=== PATIENT | male | born 1990 | race Caucasian/White ===

== ENCOUNTER 2023-03-25 16:05 | Emergency (ER) | payer OTHER, SELFPAY ==
--- NOTE | 2023-03-25 16:09 | ED.SKABFB ---
HPI - Skin/Abscess/Foreign Bdy General Chief complaint: Skin/Abscess/Foreign Body Stated complaint: rash on face Time Seen by Provider: 03/25/23 17:03 Source: patient and RN notes reviewed Mode of arrival: ambulatory Limitations: no limitations History of Present Illness HPI narrative: 32-year-old male presents with concern for rash on his face. Reports rash is itchy and burning. He denies pain. He reports he noticed the rash this morning. He denies any other rash. He denies fullness, swollen tongue, trouble breathing. He denies any new skin care products, home products. Reports he recently took an antibiotic but finished it 1 week ago. He denies any intervention MD complaint: rash Related Data Home Medications Medication Instructions Recorded Confirmed propranolol 60 mg capsule,24 60 mg PO DAILY 03/25/23 03/25/23 hr,extended release Allergies Allergy/AdvReac Type Severity Reaction Status Date / Time No Known Allergies Allergy Mild Verified 03/25/23 16:47 Review of Systems Review of Systems: CONSTITUTIONAL: Denies malaise, chills, sweats, or fever. EYES: Denies redness, or discharge. ENT: Denies rhinorrhea, congestion, swollen lips, swollen tongue CARDIOVASCULAR: Denies chest pain, palpitations, or edema. RESPIRATORY: Denies cough or dyspnea. GASTROINTESTINAL: Denies abdominal pain, nausea, vomiting SKIN: Reports itchy rash on the face MUSCULOSKELETAL: Denies joint pain or myalgia. NEUROLOGIC: Denies headache. All systems reviewed & are unremarkable except as noted in HPI and below PMFSH Family History Family History (System 08/13/20 @ 11:40 by Mega Zaldivar) Mother Family history of migraine headaches Patient's mother is in good health Family history of diabetes mellitus in first degree relative Father Hypertension Patient's father is in good health Family history of hearing loss Sibling Patient's sister is in good health Social History Social History (System 08/13/20 @ 11:40 by Mega Zaldivar) Alcohol intake: current Comments At time of signature, agree with nursing past medical, surgical, social and family history. There is no relevant family history pertinent to the presenting complaint Exam Narrative: GENERAL: Well-appearing, well-nourished, and in no acute distress. HEAD: Normocephalic, atraumatic. EYES: PERRLA, conjunctivae clear, and EOMI. ENT: Mucous membranes moist. Oropharynx without edema, erythema or lesions. NECK: Supple. No lymphadenopathy CHEST: Clear to auscultation. No respiratory distress. HEART: Regular rate and rhythm. SKIN: Warm, dry. Erythematous papular rash noted to the face, not involving the eyes. No induration, tenderness. No other rash noted NEURO: Alert and oriented x3. PSYCH: Normal mood and affect Course Course Emergency Course: Patient is aware of diagnosis, understands and agrees to treatment plan. Anticipatory guidance given. Patient agrees to follow-up as directed and is aware of reasons to seek care at the emergency department. Portions of this record may have been created with voice recognition software Level of Care: Express Care Visit Vital Signs Vital signs: Vital Signs Temperature 97.7 F 03/25/23 16:17 Pulse Rate 95 03/25/23 16:17 Respiratory Rate 18 03/25/23 16:17 Blood Pressure 139/96 H 03/25/23 16:17 Pulse Oximetry 98 03/25/23 16:17 Oxygen Delivery Room Air 03/25/23 16:17 Temperature 97.7 F 03/25/23 16:17 Pulse Rate 95 03/25/23 16:17 Respiratory Rate 18 03/25/23 16:17 Blood Pressure 139/96 H 03/25/23 16:17 Pulse Oximetry 98 03/25/23 16:17 Oxygen Delivery Room Air 03/25/23 16:17 Reviewed. MDM - Skin/Abscess/Foreign Bdy MDM Narrative Medical decision making narrative: Does not appear at this time to be erythema multiforme, bullous, SJS, TEN; no evidence at this time to suggest RMSF, endocarditis or Lyme disease; patient looks well, nontoxic and is tolerating oral intak
[2023-03-25 16:17] VITALS: BP 139/96; PULSE 95; RESP 18; TEMP 36.5; O2SAT 98
== END 2023-03-25 17:12 | disposition home or self-care (01) ==
PROVIDERS: Emergency Provider Nurse Practitioner
DX: L25.9 Unspecified contact dermatitis, unspecified cause (principal); I10 Essential (primary) hypertension
CPT/HCPCS: 99213; G0463

== ENCOUNTER 2024-08-08 11:09 | Outpatient (CLI) | payer OTHER, SELFPAY ==
[2024-08-09 10:41] LABS: Kit Draw Collected
== END 2024-08-08 11:10 | disposition home or self-care (01) ==
LOC: ANHGOSHLAB 11:11
PROVIDERS: Visit Provider Family Medicine
DX: Z76.89 Persons encountering health services in other specified circumstances (principal)
CPT/HCPCS: 36415

== ENCOUNTER 2025-03-26 09:58 | Outpatient (CLI) | payer OTHER, SELFPAY ==
--- OUTSIDE RECORDS SUMMARY | 2025-03-26 10:33 | XMS_ITS | Encounter Summary ---
Author Organization [facility] Address [address] [place] [address] Care Team Providers Care Shape Brick Molder Name Role Phone Miguel Vazquez MD Primary Care Provider U Keiry Lancaster NP Primary Care Provider [phone] Jaky Linda MD Primary Care Provider Encounter Details Date Type Department Care Team (Late st Contact Info) Description 02/01/2023 Federated Sample Message Enc [facility] Family & Internal Medicine [address] [address] [employer], [facility] Provider blood pressure Social History Tobacco Use Types Packs/Day Years Used Date Smoking Tobacco: Former Cigarettes Smokeless Tobacco: Never Alcohol Use Standard Drinks/Week Comments Yes 0 (1 standard drink = 0.6 oz pur e alcohol) AUDIT-C Answer Date Recorded Frequency of Alcohol Consumption 2-4 times a wed02/07/2019 Average Number of Drinks 3 or 4 019 Frequency of Binge Drinking Not on file 12/2018 PHQ-2 Answer Date Recorded Patient Health Questionnaire-2 Score 1 01/29/2023 Education Answer Date Recorded What is the highest level of school you have completed or the highest degree you have received? Associate degree: academic program 02/07/2019 Sex and Gender Information Value Date Recorded Sex Assigned at Not on file Legal Sex Male 7:50 PM CDT Gender Identity Not on file Sexual Orientation Not on file COVID-19 Exposure Response Date Recorded In the last 10 days, have yo u been in contact with someone who was confirmed or suspected to have Coronavirus/COVID-19? No / Unsure 01/29/2023 11:29 AM CDT documented as of this encounter Plan of Treatment Not on file documented as of this encounter Visit Diagnoses Not on filedocumented in this encounter Additional Health Concerns Assessment Noted Time PHQ-9 Depression Total Score: 10 022 4:19 PM CDT documented as of this encounter Care Teams Shape Brick Molder Relationship Specialty Start Date End Date Miguel Vazquez MD PCP - General INTERNAL MEDICINE 10/03/18 02/11/23 [place] [address] [facility] [address] [address] PCP - General Nurse Practitioner Family 02/12/2310/31 Jaky Linda MD [address] [facility] [address] [place] [address] PCP - General FAMILY PRACTICE 09/20/24 documented as of this encounter
--- OUTSIDE RECORDS SUMMARY | 2025-03-26 10:34 | XMS_ITS | Clinical Summary ---
Author Organization [facility] Address [facility] [place] [address] Care Team Providers Care Corrections Officer Name Role Phone Jaky Linda MD Primary Care Provider Allergies No known active allergies Medications ibuprofen (MOTRIN) 200 MG tablet Take 2 tablets (400 mg total) by mouth. Active propranolol LA (INDERAL LA) 60 MG 24 hr capsuleIndicati ons:Episodic migraine Take 1 capsule (60 mg total) by mouth nightly. 90 capsule 05/03/2024 Active Active Problems Problem Noted Date Diagnosed Date Chiari malformation type I ([facility]) 12/2022 Hyperlipidemia 12/07/2016 Obesity 08/12/2013 Hypertension 08/11/2013 Immunizations Immunization Administration Dates Next Due Afluria 36 MONTHS+ (Prefille d Syringe IIV4) 08/27/2019 Flucelvax 6 Months+ (Prefill ed Syringe) 07/25/2020 Influenza (Generic) 08/16/2017,08/07/2016,2014 Influenza Adult (Generic) 08/07/2021,,08/27/2019,2017,08/16/2017,08/06/2017,08/07/2016,1 Family History Medical History Relation Comments COPD Father Heart Disease Father Hypertension Father None Mother Hypertension Sister Relation Status Comments Father Mother Sister Social History Tobacco Use Types Packs/Day Years Used Date Smoking Tobacco: Former Cigarettes Smokeless Tobacco: Never Tobacco Cessation:Counseling Given: Yes Alcohol Use Standard Drinks/Week Comments Yes 0 [...] on file Sexual Orientation Not on file Last Filed Vital Signs Vital Sign Reading Time Taken Comments Blood Pressure 132/87 01/14/2024 9:16 AM HARDNESS INSPECTOR Pulse 75 01/14/2024 9:16 AM HARDNESS INSPECTOR Temperature 36.7 C (98.1 F) 09/26/2023 11:22 AM HARDNESS INSPECTOR Respiratory Rate 20 09/26/2023 12:00 PM HARDNESS INSPECTOR Oxygen Saturation 100% 01/14/2024 9:16 AM HARDNESS INSPECTOR Inhaled Oxygen Concentration - - Weight 144.7 kg (319 lb) 01/14/2024 9:16 AM HARDNESS INSPECTOR Height 185.4 cm (6' 1 ) 01/14/2024 9:16 AM HARDNESS INSPECTOR Body Mass Index 42.09 01/14/2024 9:16 AM HARDNESS INSPECTOR Plan of Treatment Health Maintenance Due Date Last Done Comments Annual Physical 1991 Hepatitis C 2006 DTaP, Tdap and Td Vaccines ( 1 - Tdap) 2007 Hepatitis B Vaccines (1 of 3 - 19+ 3-dose series) 2007 COVID-19 Vaccine (2023-2 5 season) 2024 01/24/2021, 01/03/2021 PHQ-2 (Physician Campo) 11/08/2024 HPV Vaccines Aged Out No longer eligi ble based on patient's age to complete this topic Meningococcal B Vaccine Aged Out No l onger eligible based on patient's age to complete this topic Meningococcal Vaccine Aged Out No aida francis eligible based on patient's age to complete this topic Pneumococcal Vaccine: Pediatrics (0 to 5 Years) and At-Risk Patients (6 to 49 Years) Aged Out No longer eligible b ased on patient's age to complete this topic RSV Immunizations Under 20 Months Aged Out No longer eligible b ased on patient's age to complete this topic Insurance Care Teams Corrections Officer Relationship Specialty Start Date End Date Jaky Linda MD [address] [facility] [address] [place] [address] PCP - General FAMILY PRACTICE 09/20/24
--- OUTSIDE RECORDS SUMMARY | 2025-03-26 10:34 | XMS_ITS | Clinical Summary ---
Author Organization [facility] Address [address] [place] [address] Care Team Providers Care Carton Forming Machine Operator Name Role Phone Unavailable Primary Care Provider Unavailabl e Source Comments [facility],non-owned Affiliates and Associated Physician Practices is amultiple site organization consisting of ambulatory clinics and hospital sitesin [place], [place], [place] and [place]. This disclosure is being madepursuant to the Care Everywhere program and may not contain all information available regarding this patient. Last updated 18.[facility] Social History Tobacco Use Types Packs/Day Years Used Date Smoking Tobacco: Never Assessed Sex and Gender Information Value Date Recorded Sex Assigned at Not on file Legal Sex Male 6:33 AM AUTO DAMAGE ESTIMATOR Gender Identity Not on file Sexual Orientation Not on file Plan of Treatment Health Maintenance Due Date Last Done Comments HIV SCREENING 2003 HEPATITIS C SCREENING 04/09/2006 DTAP/TDAP/TD VACCINES (1 - Tdap) 2007 HEPATITIS B VACCINE (1 of 3 - 19+ 3-dose series) 2007 COVID-19 VACCINE ( - 2023-2 5 season) 2024 DEPRESSION SCREENING 11/08/2024 INFLUENZA VACCINE (Season Ended) 2025 ZOSTER VACCINE (1 of 2) 2038 HIB VACCINE Aged Out No longer eligi ble based on patient's age to complete this topic HPV VACCINE Aged Out No longer eligi ble based on patient's age to complete this topic MENINGOCOCCAL (Group B) VACC INE SHARED DECISION-MAKING Aged Out No longer eligibl e based on patient's age to complete this topic MENINGOCOCCAL GROUPS A/C/Y/W VACCINE Aged Out No longer eligible b ased on patient's age to complete this topic PNEUMOCOCCAL VACCINE Aged Out No long er eligible based on patient's age to complete this topic
--- OUTSIDE RECORDS SUMMARY | 2025-03-26 10:34 | XMS_ITS | Clinical Summary ---
Author Organization [facility] Address [address] [place] [address] Care Team Providers Care Patient Attendant Name Role Phone No, Physician Primary Care Provider [phone] Allergies No known active allergies Medications propranolol LA (INDERAL LA) 60 mg 24 hr capsuleIndicati ons:hypertensio n Take 1 capsule (60 mg total) by mouth nightly 2 Active acetaminophen (TYLENOL) 500 mg tabletIndicatio ns:Pain Take 2 tablets (1,000 mg total) by mouth every 6 (six) hours as needed for pain Active ibuprofen 200 mg tab/capIndicati ons:Pain Take 2 tablet/capsule (400 mg total) by mouth every 6 (six) hours as needed for pain Active HYDROcodone-reyna taminophen (NORCO) 5-325 mg per tabletIndicatio ns:Pain Take 1 tablet by mouth every 6 (six) hours as needed for pain (Pain not relieved by tylenol/ibupro fen. Contains tylenol.) 13 tablet 3 Active mupirocin (BACTROBAN) 2 % ointment Apply topically 2 (two) times a day 22 g 3 Active Active Problems Problem Noted Date Diagnosed Date Conductive hearing loss 10/19/2022 Cholesteatoma 10/19/2022 Surgical History Surgery Date Site/Laterality Comments TONSILLECTOMY/ADENOIDECTOMY 11/08/2009 - 11/07/2010 Bila teral CHOLESTEATOMA EXCISION 11/08/2008 - 11/07/2009 EAR SURGERY 11/08/2008 - 11/07/2009 Left I&D Medical History Medical History Date Comments Migraine HL (hearing loss) HBP (high blood pressure) Family History Medical History Relation Name Comments Heart disease Father Relation Name Status Comments Father Social History Tobacco Use Types Packs/Day Years Used Date Smoking Tobacco: Former Cigarettes Q uit: 2019 Smokeless Tobacco: Never Tobacco Cessation:Counseling Given: Not Answered AUDIT-C Answer Date Recorded Q1: How often do you have a drink containing alc ohol? 2-4 times a month 03/16/2023 Q2: How many drinks containi ng alcohol do you have on a typical day when you are drinking? 1 or 2 03/16/2023 Q3: How often do you have si x or more drinks on one occasion? Never 03/16/2023 Personal Safety Answer Date Recorded Have you ever been in or are you currently in a harmful physical or emotional relationship or is someone making you feel afraid or unsafe? Denies 03/16/2023 Sex and Gender Information Value Date Recorded Sex Assigned at Not on file Legal Sex Male 8:28 PM BUCKET PUSHER Gender Identity Not on file Sexual Orientation Not on file Obstetrics History Last Filed Vital Signs Vital Sign Reading Time Taken Comments Blood Pressure 156/86 03/16/2023 3:15 PM CDT Pulse 66 03/16/2023 3:15 PM CDT Temperature 35.8 C (96.4 F) 03/16/2023 2:15 PM CDT Respiratory Rate 25 03/16/2023 3:15 PM CDT Oxygen Saturation 98% 03/16/2023 3:15 PM CDT Inhaled Oxygen Concentration - - Weight 137 kg (302 lb) 02/17/2023 5:15 PM CDT Height 188 cm (6' 2 ) 02/17/2023 5:15 PM CDT Body Mass Index 38.77 02/17/2023 5:15 PM CDT Plan of Treatment Health Maintenance Due Date Last Done Comments Depression Screening 1988 Hepatitis C Screening 1988 DTaP/Tdap/Td Vaccine (1 - Tdap) 1999 Varicella Vaccines (1 of 2 - 13+ 2-dose series) 2001 Hepatitis B Screening 2006 Regular Well Visit/Exam 18-64 2006 Covid-19 Vaccine ( season) 2024 01/24/2021, 01/03/2021 Influenza Vaccine (#1) 2024 2, 08/07/2021, 07/25/2020, Additional history exists HPV Vaccines Aged Out No longer eligi ble based on patient's age to complete this topic Pneumococcal vaccine <65 Aged Out No longer eligible based on patient's age to complete this topic Medical Devices Implanted Type Area Religious Education Director Device Identifier Shelf Expiration Date Model / Serial / Lot Cochlear Americas Dermalock Baha 4mm 12mm 1 Stage Abutment Implant Cochlear [id number] - [id number] Implanted:Qty: 1 on 03/16/2023 by Rosalia Nielson MD at [facility] Left: Ear Cochle[employer] [id number] 07/21/2027 [id number] / / [id number] Insurance [facility] [place] [address] [facility] CHO[facility] PL[facility] Care Teams Patient Attendant Relationship Specialty Start Date End Date No, Physician PCP - General 05/28/22
--- OUTSIDE RECORDS SUMMARY | 2025-03-26 10:34 | XMS_ITS | Referral Summary ---
Author Organization [facility] Address [address] [place] [address] Care Team Providers Care Sous Chef Kitchen Manager Name Role Phone No, Physician Primary Care Provider [phone] Allergies No known active allergies Medications propranolol [...] Date Conductive hearing loss 10/19/2022 Cholesteatoma 10/19/2022 Social History Tobacco Use Types Packs/Day Years [...] on file Legal Sex Male 8:28 PM DAY HABILITATION SPECIALIST Gender Identity Not on file Sexual Orientation [...] 02/17/2023 5:15 PM CDT Plan of Treatment Not on file Medical Devices Implanted Type Area Motor Hotel Manager Device Identifier Shelf Expiration Date Model / Serial / Lot Cochlear [employer] Dermalock Baha 4mm 12mm 1 Stage Abutment Implant Cochlear [id number] - [id number] Implanted:Qty: 1 on 03/16/2023 by Rosalia Nielson MD at [facility] Left: Ear [employer]chlear [employer] [id number] 07/21/2027 [id number] / / [id number] Insurance [facility] CHOICE PLUS [facility] CHOICE PLUS Care Teams Sous Chef Kitchen Manager Relationship Specialty Start Date End Date No, Physician PCP - General 05/28/22
[2025-03-26 20:59] LABS: Alanine Aminotransferase 56 U/L (6-50); Albumin Level 4.7 g/dL (3.5-5.1); Alkaline Phosphatase 62 U/L (38-126); Anion Gap 13 mmol/L (4-12); Aspartate Amino Transferase 127 U/L (17-59); Bilirubin,Total 0.5 mg/dL (0.2-1.3); Blood Urea Nitrogen 21 mg/dL (9-20); Calcium 9.6 mg/dL (8.4-10.2); Carbon Dioxide 25 mmol/L (22-30); Chloride 102 mmol/L (98-107); Cholesterol 145 mg/dL (0-200); Estimated Glomerular Filt Rate > 60; Glucose 87 mg/dL (65-110); HDL Direct 32 mg/dL; Sodium 140 mmol/L (137-145); Triglycerides 89 mg/dL (<150)
[2025-03-26 21:09] LABS: LDL Cholesterol Direct 85 mg/dL
== END 2025-03-26 09:59 | disposition home or self-care (01) ==
LOC: ANHGOSHLAB 09:58
PROVIDERS: PCP Family Medicine; Visit Provider Family Medicine
DX: E78.5 Hyperlipidemia, unspecified (principal); I10 Essential (primary) hypertension; Z79.899 Other long term (current) drug therapy
CPT/HCPCS: 36415; 80053; 80061

== ENCOUNTER 2025-05-23 07:56 | Outpatient (CLI) | payer OTHER, SELFPAY ==
--- OUTSIDE RECORDS SUMMARY | 2025-05-23 07:59 | XMS_ITS | Clinical Summary ---
Author Organization [facility] Address [facility] [place] [address] Care Team Providers Care Service Station Manager Name Role Phone Jaky Linda MD Primary [...] Date Diagnosed Date Chiari malformation type I ([facility]) 12/2022 Hyperlipidemia 12/07/2016 Obesity 08/12/2013 Hypertension 08/11/2013 [...] Comments Blood Pressure 132/87 01/14/2024 9:16 AM GLOBAL LOGISTICS MANAGER Pulse 75 01/14/2024 9:16 AM GLOBAL LOGISTICS MANAGER Temperature 36.7 C (98.1 F) 09/26/2023 11:22 AM GLOBAL LOGISTICS MANAGER Respiratory Rate 20 09/26/2023 12:00 PM GLOBAL LOGISTICS MANAGER Oxygen Saturation 100% 01/14/2024 9:16 AM GLOBAL LOGISTICS MANAGER Inhaled Oxygen Concentration - - Weight 144.7 kg (319 lb) 01/14/2024 9:16 AM GLOBAL LOGISTICS MANAGER Height 185.4 cm (6' 1) 01/14/2024 9:16 AM GLOBAL LOGISTICS MANAGER Body Mass Index 42.09 01/14/2024 9:16 AM GLOBAL LOGISTICS MANAGER Plan of Treatment Health Maintenance Due Date Last Done Comments Annual Physical 1991 Hepatitis C 2006 DTaP, Tdap and Td Vaccines ( 1 - Tdap) 2007 Hepatitis B Vaccines (1 of 3 - 19+ 3-dose series) 2007 COVID-19 Vaccine (2023-2 5 season) 2024 01/24/2021, 01/03/2021 PHQ-2 (Physician Hoopa) 11/08/2024 HPV Vaccines Aged Out No longer [...] to complete this topic Insurance Care Teams Service Station Manager Relationship Specialty Start Date End Date Jaky Linda MD [address] [facility] [address] [place] [address] PCP - General FAMILY PRACTICE 09/20/24
--- OUTSIDE RECORDS SUMMARY | 2025-05-23 07:59 | XMS_ITS | Patient Health Record ---
Author Organization [facility] [employer]. Address [address] [place] [address] Care Team Providers Care Travel Agency Manager Name Role Phone Sidney Milian Primary Care Provider Reason For Referral No Information Immunizations Vaccine Route Administration Date Status Comme nts zzInfluenza, quadrivalent, injectable, preservative free (All) IM Intramuscular 08/06/2017 Administered Plan Of Treatment No Information Insurance Providers Payer Name Payer Address Payer Phone Subscriber Number Group Number Insured Name Patient Relationship to Insured Coverage Start Date Coverage End Date A[employer] [address] [place] [address] [id number] Yaya Gonzalez Self - patient is the insured
--- OUTSIDE RECORDS SUMMARY | 2025-05-23 07:59 | XMS_ITS | Clinical Summary ---
Author Organization [facility] Address [address] [place] [address] Care Team Providers Care Speech Coach Name Role Phone No, Physician Primary Care Provider [phone] Allergies No known active allergies Medications propranolol [...] on file Legal Sex Male 8:28 PM VB DEVELOPER Gender Identity Not on file Sexual Orientation [...] 5:15 PM CDT Height 188 cm (6' 2) 02/17/2023 5:15 PM CDT Body Mass Index 38.77 02/17/2023 5:15 PM CDT Plan of Treatment Health Maintenance Due Date Last Done Comments Depression Screening 1988 Hepatitis C Screening 1988 DTaP/Tdap/Td Vaccine (1 - Tdap) 1999 Varicella Vaccines (1 of 2 - 13+ 2-dose series) 2001 Hepatitis B Screening 2006 Regular Well Visit/Exam 18-64 2006 Covid-19 Vaccine ( season) 2024 01/24/2021, 01/03/2021 Influenza Vaccine (Season Ended) 2025 07/23/2022, 08/07/2021, 07/25/2020, Additional history exists HPV Vaccines Aged Out No longer eligi ble based on patient's age to complete this topic Pneumococcal vaccine <65 Aged Out No longer eligible based on patient's age to complete this topic Medical Devices Implanted Type Area Athletic Events Scorer Device Identifier Shelf Expiration Date Model / Serial / Lot Cochlear [employer] Dermalock Baha 4mm 12mm 1 Stage Abutment Implant Cochlear [id number] - [id number] Implanted:Qty: 1 on 03/16/2023 by Rosalia Nielson MD at [facility] Left: Ear Cochlear [employer] [id number] 07/21/2027 [id number] / / [id number] Insurance [facility] CHO[facility] PLUS [facility] HMO/PPO Address: [facility] [address] [place] [address] [facility] CHOICE PLUS [facility] HMO/PPO Address: [place] [address] Care Teams Speech Coach Relationship Specialty Start Date End Date No, Physician PCP - General 05/28/22
--- OUTSIDE RECORDS SUMMARY | 2025-05-23 07:59 | XMS_ITS | Referral Summary ---
Author Organization [facility] Address [address] [place] [address] Care Team Providers Care Battery Vent Plug Inserter Name Role Phone No, Physician Primary Care Provider [phone] Allergies No known active allergies Medications propranolol [...] on file Legal Sex Male 8:28 PM EXTENSION FORESTER Gender Identity Not on file Sexual Orientation [...] on file Medical Devices Implanted Type Area Shingle Sawyer Device Identifier Shelf Expiration Date Model / Serial / Lot Cochlear [employer] Dermalock Baha 4mm 12mm 1 Stage Abutment Implant Cochlear [id number] - [id number] Implanted:Qty: 1 on 03/16/2023 by Rosalia Nielson MD at [facility] Left: Ear [employer]chlear [employer] [id number] 07/21/2027 [id number] / / [id number] Insurance [facility] CHO[facility] PLUS [facility] CHO[facility] PL[facility] Care Teams Battery Vent Plug Inserter Relationship Specialty Start Date End Date No, Physician PCP - General 05/28/22
--- OUTSIDE RECORDS SUMMARY | 2025-05-23 07:59 | XMS_ITS | Encounter Summary ---
Author Organization [facility] Address [address] [place] [address] Care Team Providers Care Rougher Merchant Mill Name Role Phone Miguel Vazquez MD Primary Care Provider U Keiry Lancaster NP Primary Care Provider [phone] Jaky Linda MD Primary Care Provider Encounter Details Date Type Department Care Team (Late st Contact Info) Description 02/01/2023 Y'all Message Enc [facility] Family & Internal Medicine [address] [address] [place], [facility] Provider blood pressure Social History Tobacco Use [...] documented as of this encounter Care Teams Rougher Merchant Mill Relationship Specialty Start Date End Date Miguel Vazquez MD PCP - General INTERNAL MEDICINE 10/03/18 02/11/23 [place] [address] [facility] [address], [place] [address] PCP - General Nurse Practitioner Family 02/12/2310/31 Jaky Linda MD [address] [facility] [address] [place] [address] PCP - General FAMILY PRACTICE 09/20/24 documented as of this encounter
--- OUTSIDE RECORDS SUMMARY | 2025-05-23 07:59 | XMS_ITS | Clinical Summary ---
Author Organization [facility] Address [address] [place] [address] Care Team Providers Care Customer Service And Sales Consultant Name Role Phone Unavailable Primary Care Provider Unavailabl e Source Comments [facility],non-owned Affiliates and Associated Physician Practices is amultiple site organization consisting of ambulatory clinics and hospital sitesin [place], [place], [place] and [place]. This disclosure is being madepursuant to the Care Everywhere program and may not contain all information available regarding this patient. Last updated 18.[facility] [place] Social History Tobacco Use Types Packs/Day Years Used Date Smoking Tobacco: Never Assessed Sex and Gender Information Value Date Recorded Sex Assigned at Not on file Legal Sex Male 6:33 AM BEATER ROOM HELPER Gender Identity Not on file Sexual Orientation Not on file Plan of Treatment Health Maintenance Due Date Last Done Comments HIV SCREENING 2003 HEPATITIS C SCREENING 04/09/2006 DTAP/TDAP/TD VACCINES (1 - Tdap) 2007 HEPATITIS B VACCINE (1 of 3 - 19+ 3-dose series) 2007 HPV VACCINE (1 - 3-dose SCDM series) 2015 COVID-19 VACCINE ( - 2023-2 5 season) 2024 DEPRESSION SCREENING 11/08/2024 INFLUENZA VACCINE (#1) 2025 ZOSTER VACCINE (1 of 2) 2038 [...]
[2025-05-23 18:52] LABS: Alanine Aminotransferase 34 U/L (6-50); Albumin Level 4.4 g/dL (3.5-5.1); Alkaline Phosphatase 63 U/L (38-126); Anion Gap 7 mmol/L (4-12); Aspartate Amino Transferase 61 U/L (17-59); Bilirubin,Total 0.4 mg/dL (0.2-1.3); Blood Urea Nitrogen 17 mg/dL (9-20); Calcium 9.7 mg/dL (8.4-10.2); Carbon Dioxide 29 mmol/L (22-30); Chloride 102 mmol/L (98-107); Estimated Glomerular Filt Rate > 60; Glucose 88 mg/dL (65-110); Potassium 4.4 mmol/L (3.4-5.0); Sodium 138 mmol/L (137-145); Total Protein 7.6 g/dL (6.3-8.2)
[2025-05-23 19:07] LABS: Hepatitis B Surface Antigen Negative (Negative)
[2025-05-23 19:13] LABS: HAV RESULT Negative (Negative); Hepatitis B Core IgM Result Negative (Negative)
== END 2025-05-23 07:57 | disposition home or self-care (01) ==
LOC: ANHGOSHLAB 07:57
PROVIDERS: PCP Family Medicine; Visit Provider Family Medicine
DX: R74.01 Elevation of levels of liver transaminase levels (principal); I10 Essential (primary) hypertension; R74.8 Abnormal levels of other serum enzymes
CPT/HCPCS: 36415; 80053; 80074

== ENCOUNTER 2025-06-04 10:38 | Outpatient (CLI) | payer OTHER, SELFPAY ==
--- OUTSIDE RECORDS SUMMARY | 2025-06-04 11:04 | XMS_ITS | Clinical Summary ---
Author Organization [facility] Address [address] [place] [address] Care Team Providers Care Manifold Builder Name Role Phone Unavailable Primary Care Provider Unavailabl e Source Comments [facility],non-owned Affiliates and Associated Physician Practices is amultiple site organization consisting of ambulatory clinics and hospital sitesin [place], [place], [place] and [place]. This disclosure is being madepursuant to the Care Everywhere program and may not contain all information available regarding this patient. 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
--- OUTSIDE RECORDS SUMMARY | 2025-06-04 11:04 | XMS_ITS | Patient Health Record ---
Author Organization [facility] Address [address] [place] [address] Care Team Providers Care Cad Draftsman Name Role Phone Sidney Milian Primary Care Provider Reason For Referral No Information Immunizations Vaccine Route Administration Date Status Comme nts zzInfluenza, quadrivalent, injectable, preservative free (All) IM Intramuscular 08/06/2017 Administered Plan Of Treatment No Information Insurance Providers Payer Name Payer Address Payer Phone Subscriber Number Group Number Insured Name Patient Relationship to Insured Coverage Start Date Coverage End Date Aetna [address] [place] [address] [id number] Yaya Gonzalez Self - patient is the insured
--- OUTSIDE RECORDS SUMMARY | 2025-06-04 11:04 | XMS_ITS | Clinical Summary ---
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 Gender Identity Not on file Sexual Orientation [...] Screening 2006 Regular Well Visit/Exam 18-64 2006 HPV Vaccines (1 - 3-dose SCDM series) 2015 Covid-19 Vaccine ( season) 2024 01/24/2021, 01/03/2021 Influenza Vaccine (#1) 2025 , 08/07/2021, 07/25/2020, Additional history exists Pneumococcal vaccine <65 Aged Out No longer eligible based on patient's age to complete this topic Medical Devices Implanted Type Area Wire Roller Device Identifier Shelf Expiration Date Model / Serial / Lot Cochlear [employer] Dermalock Baha 4mm 12mm 1 Stage Abutment Implant Cochlear [id number] - [id number] Implanted:Qty: 1 on 03/16/2023 by Rosalia Nielson MD at [facility] [place] Left: Ear [employer]chle[employer] [id number] 07/21/2027 [id number] / / [id number] Insurance [facility] PLUS [facility] H[facility]/PPO Address: [facility] [address] [place] [address] [facility] CHOICE PLUS [facility] HMO/PPO Address: [place] [address] Care Teams Mental Health Nurse Practitioner Relationship Specialty Start Date End Date No, Physician PCP - General 05/28/22
--- OUTSIDE RECORDS SUMMARY | 2025-06-04 11:04 | XMS_ITS | Referral Summary ---
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 Left: Ear [employer]chle[employer] [id number] 07/21/2027 [id number] / / [id number] Insurance [facility] CHOICE PLUS [facility] CHOICE PLUS Care Teams Mold Capper Helper Relationship Specialty Start Date End Date No, Physician PCP - General 05/28/22
[2025-06-04 14:21] LABS: Alanine Aminotransferase 39 U/L (6-50); Albumin Level 4.4 g/dL (3.5-5.1); Alkaline Phosphatase 66 U/L (38-126); Anion Gap 10 mmol/L (4-12); Aspartate Amino Transferase 94 U/L (17-59); Bilirubin,Total 0.7 mg/dL (0.2-1.3); Blood Urea Nitrogen 20 mg/dL (9-20); Calcium 9.7 mg/dL (8.4-10.2); Carbon Dioxide 26 mmol/L (22-30); Chloride 103 mmol/L (98-107); Estimated Glomerular Filt Rate > 60; Glucose 98 mg/dL (65-110); Potassium 4.3 mmol/L (3.4-5.0); Sodium 139 mmol/L (137-145); Total Protein 7.6 g/dL (6.3-8.2)
== END 2025-06-04 10:39 | disposition home or self-care (01) ==
LOC: ANHGOSHLAB 10:39
PROVIDERS: PCP Family Medicine; Visit Provider Family Medicine
DX: E78.5 Hyperlipidemia, unspecified (principal); R74.8 Abnormal levels of other serum enzymes
CPT/HCPCS: 36415; 80053

== ENCOUNTER 2025-07-06 07:57 | Outpatient (CLI) | payer OTHER, SELFPAY ==
--- OUTSIDE RECORDS SUMMARY | 2025-07-06 08:03 | XMS_ITS | Clinical Summary ---
Author Organization [facility] Address [address] [place] [address] Care Team Providers Care Sprayer Hand Name Role Phone Unavailable Primary Care Provider Unavailabl e Source Comments [facility],non-owned Affiliates and Associated Physician Practices is amultiple site organization consisting of ambulatory clinics and hospital sitesin [place], [place], [place] and [place]. This disclosure is being madepursuant to the Care Everywhere program and may not contain all information available regarding this patient. Last updated 18.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
--- OUTSIDE RECORDS SUMMARY | 2025-07-06 08:03 | XMS_ITS | Clinical Summary ---
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 Gender Identity Not on file Sexual Orientation [...] this topic Medical Devices Implanted Type Area Vice President Of Consulting Services Device Identifier Shelf Expiration Date Model / Serial / Lot Cochlear [employer] Dermalock Baha 4mm 12mm 1 Stage Abutment Implant Cochlear [id number] - [id number] Implanted:Qty: 1 on 03/16/2023 by Rosalia Nielson MD at [facility] [place] Left: Ear [employer] [id number] 07/21/2027 [id number] / / [id number] Insurance [facility] PLUS [facility] PL[facility] Care Teams Women'S Studies Professor Relationship Specialty Start Date End Date No, Physician PCP - General 05/28/22
--- OUTSIDE RECORDS SUMMARY | 2025-07-06 08:03 | XMS_ITS | Encounter Summary ---
Author Organization [facility] Address [address] [place] [address] Care Team Providers Care Design Cell Engineer Name Role Phone Miguel Vazquez MD Primary Care Provider U Keiry Lancaster NP Primary Care Provider [phone] Jaky Linda MD Primary Care Provider Encounter Details Date Type Department Care Team (Late st Contact Info) Description 02/01/2023 Group Pho[facility]be [employer] Message Enc [facility] Medical [facility] Family & Internal Medicine [address] [address] [facility], [facility] Provider blood pressure Social History [...] documented as of this encounter Care Teams Design Cell Engineer Relationship Specialty Start Date End Date Miguel Vazquez MD PCP - General INTERNAL MEDICINE 10/03/18 02/11/23 [place] [address] [facility] [address] [address] PCP - General Nurse Practitioner Family 02/12/2310/31 Jaky Linda MD [address] [facility] [address] [place] [address] PCP - General FAMILY PRACTICE 09/20/24 documented as of this encounter
--- OUTSIDE RECORDS SUMMARY | 2025-07-06 08:03 | XMS_ITS | Patient Health Record ---
Author Organization [facility] Address [address] [place] [address] Care Team Providers Care Aircraft Restorer Name Role Phone Sidney Milian Primary Care Provider Reason For Referral No Information Immunizations Vaccine Route Administration Date Status Comme nts zzInfluenza, quadrivalent, injectable, preservative free (All) IM Intramuscular 08/06/2017 Administered Plan Of Treatment No Information Insurance Providers Payer Name Payer Address Payer Phone Subscriber Number Group Number Insured Name Patient Relationship to Insured Coverage Start Date Coverage End Date Aetna [address] [place] [address] [id number] Yaya Gonzalez Self - patient is the insured
--- OUTSIDE RECORDS SUMMARY | 2025-07-06 08:04 | XMS_ITS | Clinical Summary ---
Author Organization [facility] Address [facility] [place] [address] Care Team Providers Care Television Writer Name Role Phone Jaky Linda MD Primary [...] Date Diagnosed Date Chiari malformation type I ([facility]) 12/2022 Hyperlipidemia 12/07/2016 Obesity 08/12/2013 [...] Comments Blood Pressure 132/87 01/14/2024 9:16 AM REFRIGERATION INSULATOR Pulse 75 01/14/2024 9:16 AM REFRIGERATION INSULATOR Temperature 36.7 C (98.1 F) 09/26/2023 11:22 AM REFRIGERATION INSULATOR Respiratory Rate 20 09/26/2023 12:00 PM REFRIGERATION INSULATOR Oxygen Saturation 100% 01/14/2024 9:16 AM REFRIGERATION INSULATOR Inhaled Oxygen Concentration - - Weight 144.7 kg (319 lb) 01/14/2024 9:16 AM REFRIGERATION INSULATOR Height 185.4 cm (6' 1) 01/14/2024 9:16 AM REFRIGERATION INSULATOR Body Mass Index 42.09 01/14/2024 9:16 AM REFRIGERATION INSULATOR Plan of Treatment Health Maintenance Due Date Last Done Comments Annual Physical 1991 Hepatitis C 2006 DTaP, Tdap and Td Vaccines ( 1 - Tdap) 2007 Hepatitis B Vaccines (1 of 3 - 19+ 3-dose series) 2007 HPV Vaccines (1 - 3-dose SCD M series) 2015 COVID-19 Vaccine (3 - 2023-2 5 season) 2024 01/24/2021, 01/03/2021 PHQ-2 (Physician [employer]) 11/08/2024 Meningococcal B Vaccine Aged Out No l [...] to complete this topic Insurance Care Teams Television Writer Relationship Specialty Start Date End Date Jaky Linda MD [address] [facility] [address] [place] [address] PCP - General FAMILY PRACTICE 09/20/24
[2025-07-06 19:11] LABS: Alanine Aminotransferase 42 U/L (6-50); Albumin Level 4.6 g/dL (3.5-5.1); Alkaline Phosphatase 66 U/L (38-126); Aspartate Amino Transferase 44 U/L (17-59); Bilirubin,Total 0.6 mg/dL (0.2-1.3); Blood Urea Nitrogen 20 mg/dL (9-20); Calcium 9.6 mg/dL (8.4-10.2); Carbon Dioxide 27 mmol/L (22-30); Estimated Glomerular Filt Rate > 60; Glucose 80 mg/dL (65-110); Potassium 4.0 mmol/L (3.4-5.0); Sodium 138 mmol/L (137-145); Total Protein 7.4 g/dL (6.3-8.2)
[2025-07-06 19:18] LABS: Anion Gap 11 mmol/L (4-12); Chloride 100 mmol/L (98-107)
== END 2025-07-06 07:58 | disposition home or self-care (01) ==
LOC: ANHGOSHLAB 07:58
PROVIDERS: PCP Family Medicine; Visit Provider Family Medicine
DX: I10 Essential (primary) hypertension (principal)
CPT/HCPCS: 36415; 80053